=== PATIENT | male | born 1965 | race Caucasian/White ===

== ENCOUNTER → 2024-01-05 14:49 | Outpatient (CLI) | payer BC, SELFPAY ==
--- NOTE | ~2024-01-05 | XR_ITS ---
Supine and upright views of the abdomen Clinical history: Renal stone Findings: Bowel gas pattern is nonspecific. No evidence for obstruction or free air. No abnormal mass lesion or calcification is seen. Osseous structures are intact. Impression: No significant abnormality is seen. Reviewed, dictated and finalized at [facility]. 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
== END ==
PROVIDERS: PCP Urology; Visit Provider Urology
DX: N20.0 Calculus of kidney (principal)
CPT/HCPCS: 74018

== ENCOUNTER 2024-04-02 10:02 | Outpatient (CLI) | payer BC, SELFPAY ==
--- NOTE | ~2024-04-02 | CT_ITS ---
EXAMINATION: CT abdomen pelvis wo con DATE: 04/02/2024 10:28 INDICATION: Bilateral kidney stones. TECHNIQUE: Computed tomography (CT) of the abdomen and pelvis was performed without intravenous contr ast. Automated exposure control and iterative reconstruction technique were employed. The dose-length product was 718.71 mGy-cm. COMPARISON: Abdomen radiographs 01/05/2024 FINDINGS: The visualized portions of the lung bases demonstrate mild atelectasis. No pleural effusion . The heart size is normal. No pericardial effusion. There is diffuse hepatic steatosis. There are ch anges of cholecystectomy. The spleen, pancreas, adrenal glands, and kidneys are normal. There is a 6 mm stone in proximal left ureter. There is mild left hydroureter including distal to the stone. There are bilateral inguinal hernias containing fat. The appendix is normal. There are no pathologically e nlarged lymph nodes. There is no free intraperitoneal fluid. There is mild thoracic and lumbar spondy losis. IMPRESSION: 1. 6 mm stone in proximal left ureter. Mild left hydroureter including distal to the stone. Reviewed, dictated and finalized at location A. IMPRESSION: 1. 6 mm stone in proximal left ureter. Mild left hydroureter including distal t o the stone.
== END 2024-04-02 10:03 | disposition home or self-care (01) ==
PROVIDERS: PCP Urology; Visit Provider Nurse Practitioner Family
DX: N20.1 Calculus of ureter (principal); N13.4 Hydroureter
CPT/HCPCS: 74176

== ENCOUNTER 2025-10-24 09:33 | Outpatient (CLI) | payer BC, SELFPAY ==
--- NOTE | ~2025-10-24 | XR_ITS ---
XR abdomen/kub 1V 10/24/2025 09:52 INDICATION: Renal stones TECHNIQUE: KUB COMPARISON: KUB dated 01/05/2024 FINDINGS: Bowel gas pattern is normal. There is no evidence of free air, mass, organomegaly, ascites or obstruction. No abnormal calculi are seen. The bones appear intact. There are cholecystectomy clips. IMPRESSION: 1: No acute abdominal abnormality identified. Reviewed, dictated and finalized at location I. [employer]
== END 2025-10-24 09:34 | disposition home or self-care (01) ==
PROVIDERS: PCP Internal Medicine; Visit Provider Urology
DX: N20.0 Calculus of kidney (principal); Z90.49 Acquired absence of other specified parts of digestive tract
CPT/HCPCS: 74018